=== PATIENT | female | born 1960 | race Caucasian/White ===

== ENCOUNTER 2016-08-27 15:17 | Emergency (ER) | payer OTHER ==
[~2016-08-27] VITALS: Ht 170.2 cm; Wt 100.0 kg
[~2016-08-27 15:17] MED LIST: FAMO-18 PO; MAG355OR15 PO; NAPR-260 PO; ONDA4TAB8 PO
[2016-08-27 15:32] VITALS: Ht 170.2 cm; Wt 100.0 kg
[2016-08-27] MEDS ORDERED: AZIT250T94 PO (16:16)
[2016-08-27] MEDS ORDERED: FLUT9.9S NASAL (16:17)
[2016-08-27] MEDS ORDERED: UDROBDM PO (16:17)
[2016-08-27] MEDS ORDERED: NAPR-260 PO (16:19)
--- NOTE | 2016-08-27 16:24 | ERD ---
ER Documentation Chief Complaint Date/Time DATE: 08/27/16 TIME: 16:21 Chief Complaint PRODUCTIVE COUGH W/YELLOWISH,THICK SPUTUMX 2 WKS;BACK HURTS WHEN PT COUGHS HPI This a 55-year-old female who presents to the emergency department today complaining of cough for the past 2 weeks. States that she has coughing up green phlegm. States her back hurts when she coughs. States that 2 weeks prior to this she had the flu. Denies any fevers at this time. States she has tried lybo-dlw-aczairm cough medication with no improvement in symptoms. Denies any fevers or chills, nausea vomiting or diarrhea ROS All systems reviewed and are negative except as per history of present illness. Medications Home Meds Active Scripts Naproxen* (Naprosyn*) 500 Mg Tablet, 500 MG PO BID Y for PAIN AND/OR INFLAMMATION, #30 TAB Prov:BRET GUIDRY PA-C 08/27/16 Fluticasone Propionate (Flonase Allergy Relief) 9.9 Ml Palmer.susp, 2 SPRAY NASAL DAILY, #1 BOTTLE TO EACH NOSTRIL Prov:BRET GUIDRY PA-C 08/27/16 Guaifenesin-Dextromethorphan* (Robitussin* DM) 100MG/10MG/5ML Syrup, 10 ML PO Q6H Y for COUGH for 5 Days, ML Prov:BRET GUIDRY PA-C 08/27/16 Azithromycin* (Zithromax*) 250 Mg Tablet, 250 MG PO .GustavoPACK DIRECTED, #6 TAB TAKE 500 MG (2 TABS) THE FIRST DAY THEN 250 MG (1 TAB) DAYS 2-5 Prov:BRET GUIDRY PA-C 08/27/16 Ondansetron Hcl* (Zofran*) 4 Mg Tablet, 4 MG PO Q8H Y for NAUSEA AND/OR VOMITING , #30 TAB Prov:LEONIDAS CELIS MD 11/19/15 Naproxen* (Naprosyn*) 500 Mg Tablet, 500 MG PO BID Y for PAIN AND/OR INFLAMMATION, #30 TAB Prov:LEONIDAS CELIS MD 11/19/15 Famotidine* (Pepcid*) 20 Mg Tablet, 20 MG PO BID for 4 Days, #30 TAB Prov:LEONIDAS CELIS MD 11/19/15 Mag Hydrox/Al Hydrox/Simeth (Maalox Ms Liquid) 360 Ml Oral.susp, 2 TSP PO TID for PAIN, #24 OZ Prov:LEONIDAS CELIS MD 11/19/15 Allergies Allergies: Uncoded Allergies: PENICILLIN (Allergy, Unknown, 11/19/15) PMhx/Soc History of Surgery: No Anesthesia Reaction: No Hx Neurological Disorder: No Hx Respiratory Disorders: No Hx Cardiac Disorders: Yes (htn) Hx Psychiatric Problems: No Hx Miscellaneous Medical Probl: No Hx Alcohol Use: No Hx Substance Use: No Hx Tobacco Use: No Physical Exam Vitals Vital Signs Date Time Temp Pulse Resp B/P Pulse Ox O2 Delivery O2 Flow Rate FiO2 08/27/16 15:32 97.8 80 19 151/80 95 Physical Exam Const: No acute distress Head: Atraumatic Eyes: Normal Conjunctiva ENT: ears TMs normal. Nose no drainage. Throat no erythema no exudate Neck: Full range of motion..~ No meningismus. Resp: Clear to auscultation bilaterally no absent breath sounds. No wheezing. Cardio: Regular rate and rhythm, no murmurs Abd: Soft, non tender, non distended. Normal bowel sounds Skin: No petechiae or rashes Neur: Awake and alert Psych: Normal Mood and Affect Procedures/MDM This 55-year-old female who presents the emergency department today complaining of cough for the past 2 weeks and back pain with coughing. Patient [facility]. She is afebrile and otherwise well-appearing. Her oxygen saturation 95%. She is not tachycardic. He is talkative and in no acute distress I do not feel the patient requires a chest x-ray at this time. Low suspicion for PE, abscess, pneumothorax, pleural effusion. I did give the patient a prescription for azithromycin that would cover her for pneumonia but symptoms at this time appear most consistent with bronchitis versus viral URI. I have low suspicion for strep pharyngitis, peritonsillar abscess, retropharyngeal abscess, otitis media, sinusitis, abscess, meningitis, sepsis, or other acute infectious bacterial process. Patient was given a prescription for azithromycin, Flonase, Robitussin, Naprosyn At this time the patient is stable for discharge and outpatient management. They should follow up with their PCP in the next 1-2. They may return to the emergency department sooner if symptoms persist or worsen. Patient understood and agreed with the plan. Departure Diagnosis: Primary Impression: Cough Condition: Fair Patient Instructions: What Is Bronchitis?, Cough, Chronic, Uncertain Cause, ( Adult) Referrals: COMM[facility]ITY CLINICS YOU HAVE RECEIVED A MEDICAL SCREENING EXAM AND THE RESULTS INDICATE THAT YOU DO NOT HAVE A CONDITION THAT REQUIRES URGENT TREATMENT IN THE EMERGENCY DEPARTMENT. FURTHER EVALUATION AND TREATMENT OF YOUR CONDITION CAN WAIT UNTIL YOU ARE SEEN IN YOUR DOCTORS OFFICE WITHIN THE NEXT 1-2 DAYS. IT IS YOUR RESPONSIBILITY TO MAKE AN APPOINTMENT FOR FOLOW-UP CARE. IF YOU HAVE A PRIMARY DOCTOR --you should call your primary doctor and schedule an appointment IF YOU DO NOT HAVE A PRIMARY DOCTOR YOU CAN CALL OUR PHYSICIAN REFERRAL HOTLINE AT IF YOU CAN NOT AFFORD TO SEE A PHYSICIAN YOU CAN CHOSE FROM THE FOLLOWING [facility] [address] [facility] [place] [facility] [address] [facility] [facility] [address] [facility]. [facility] [address] [address] [facility] [address] [facility]. [facility]. [address] Additional Instructions: Call your primary care doctor TOMORROW for an appointment during the next 1-2 days.See the doctor sooner or return here if your condition worsens before your appointment time. Take antibiotics as prescribed Take Robitussin for cough Take Flonase for nasal congestion Take Naprosyn for pain BRET GUIDRY PA-C Aug 27, 2016 16:24
== END 2016-08-27 16:20 | disposition home or self-care (01) ==
LOC: E/R 15:17
DX: R05 Cough (principal); I10 Essential (primary) hypertension
CPT/HCPCS: 99283

== ENCOUNTER 2017-07-25 06:46 | Inpatient (IN) | END 2017-07-30 18:55 | disposition home health service (06) | DRG 470 ==

== ENCOUNTER 2018-06-22 09:54 | Emergency (ER) | payer OTHER ==
[~2018-06-22] VITALS: Wt 94.2 kg
[~2018-06-22 09:54] MED LIST changes: +APIX5TAB PO; -FAMO-18 PO; +HYDR-4011 PO; +LOSA100T15 PO; -MAG355OR15 PO; -NAPR-260 PO; -ONDA4TAB8 PO
[2018-06-22 09:57] VITALS: BP 173/79; PULSE 98; RESP 16
[2018-06-22] MEDS ORDERED: ACETAMINOPHEN 325 MG TAB PO ONE (10:30)
--- NOTE | 2018-06-22 11:54 | ERD ---
ER Documentation Chief Complaint Chief Complaint RIGHT EAR PAIN X2 DAYS HPI 57-year-old female presents with right ear pain for last 2 days. She also has sore throat, cough and congestion. She points to the bilateral anterior neck is area of pain as well. ROS All systems reviewed and are negative except as per history of present illness. Medications Home Meds Active Scripts Hydrocodone/Acetaminophen ([place] 5-325 Tablet) 1 Each Tablet, 1 EACH PO Q4 for PAIN, #30 TAB Prov:JENNIFER VILLARREALA 07/30/17 Apixaban* (Eliquis*) 5 Mg Tablet, 2.5 MG PO BID for 14 Days, TAB Prov:JENNIFER VILLARREALA 07/30/17 Reported Medications Losartan Potassium* (Losartan Potassium*) 100 Mg Tablet, 100 MG PO DAILY, TAB 07/24/17 Allergies Allergies: Coded Allergies: Penicillins (Verified Allergy, Severe, 07/25/17) PMhx/Soc History of Surgery: Yes (C SECTION,LT EAR TYMPANOPLSTY,LIPOMA REMOVAL) Anesthesia Reaction: No Hx Neurological Disorder: No Hx Respiratory Disorders: No Hx Cardiac Disorders: Yes (HTN,HLD) Hx Psychiatric Problems: Yes (ANXIETY/DEPRESSION) Hx Miscellaneous Medical Probl: No Hx Alcohol Use: Yes (SOCIAL) Hx Substance Use: No Hx Tobacco Use: No Smoking Status: Unknown if ever smoked FmHx Family History: No diabetes, No coronary disease, No other Physical Exam Vitals Vital Signs Date Temp Pulse Resp B/P (MAP) Pulse Ox O2 O2 Flow FiO2 Time Delivery Rate 06/22/18 97.5 98 16 173/79 100 09:57 (110) Physical Exam Const: No acute distress Head: Atraumatic Eyes: Normal Conjunctiva ENT: Normal External Ears, Nose and Mouth. TMs normal. No significant lymphadenitis. Oropharynx grossly normal. no thyroid swelling or appreciable masses. Neck: Full range of motion. No meningismus. Resp: Clear to auscultation bilaterally Cardio: Regular rate and rhythm, no murmurs Abd: Soft, non tender, non distended. Normal bowel sounds Skin: No petechiae or rashes Back: No midline or flank tenderness Ext: No cyanosis, or edema Neur: Awake and alert Psych: Normal Mood and Affect Results 24 hrs Current Medications Medications Dose Sig/Hailey Start Time Status Last (Trade) Ordered Route PRN Stop Time Admin Dose Reason Admin 650 mg ONCE ONCE 06/22/18 DC Acetaminophen PO 10:30 (Tylenol 06/22/18 10:31 Tab) Procedures/MDM Tylenol was ordered for pain. EKG was ordered given neck pain of uncertain etiology with essentially normal exam. Patient was noted to have eloped prior to exam. Good susan effort was performed to locate the patient's no avail. Patient was marked as eloped subsequently. Patient was [id number] and ambulatory at time of last evaluation. Disposition-eloped Departure Diagnosis: Primary Impression: Right ear pain Condition: Stable JUMA GARCIA MD Jun 22, 2018 11:54
== END 2018-06-23 11:00 | disposition left against medical advice (07) ==
LOC: FTE 09:54
DX: H92.01 Otalgia, right ear (principal); I10 Essential (primary) hypertension
CPT/HCPCS: 93005; Z7502; Z7610

== ENCOUNTER 2018-08-19 09:57 | Inpatient (IN) | payer OTHER ==
[~2018-08-19] VITALS: Ht 170.2 cm; Wt 94.7 kg
[~2018-08-19 09:57] MED LIST changes: -LOSA100T15 PO
[2018-08-19 13:26] VITALS: PULSE 88
[2018-08-19 14:00] VITALS: BP 150/96; PULSE 88; RESP 18; BMI 37.1
[2018-08-19 15:07] VITALS: BP 146/72; PULSE 77; RESP 16
[2018-08-19 16:16] VITALS: PULSE 79
[2018-08-19] MEDS ORDERED: ONDANSETRON 4 MG INJ IV PRN (16:30)
[2018-08-19] MEDS ORDERED: DOCUSATE SODIUM 100 MG CAP PO PRN (16:30)
[2018-08-19] MEDS ORDERED: NACL 0.9% 3 ML SYG IV SCH (16:30)
[2018-08-19] MEDS ORDERED: NITROGLYCERIN (SL) 0.4 MG TAB SL PRN (16:30)
[2018-08-19] MEDS ORDERED: ALBUTEROL/IPRATROPIUM (NEB) 3 ML AMP HHN PRN (16:30)
[2018-08-19] MEDS ORDERED: LORAZEPAM 2 MG INJ IV PRN (16:30)
[2018-08-19] MEDS ORDERED: ACETAMINOPHEN 325 MG TAB PO PRN (16:30)
[2018-08-19] MEDS ORDERED: MAGNESIUM HYDROXIDE 30ML CUP PO PRN (16:30)
[2018-08-19] MEDS ORDERED: hydrALAzine 20 MG INJ IV PRN (16:30)
--- NOTE | 2018-08-19 17:18 | HP ---
DATE OF ADMISSION: 08/19/2018 CHIEF COMPLAINT: This is a 57-year-old female transferred from outside hospital due to altered menta l status and headache. HISTORY OF PRESENT ILLNESS: A 57-year-old female with past medical history of hypertension, high cho lesterol, right knee osteoarthritis status post surgical replacement in the past, anxiety and depress ion, and alcohol abuse who presented to outside hospital with altered mental status and headache. Ap parently, the patient was having some altered mental status and possible abnormal behavior and had ta michele Crum the night previously. Apparently, she was also confused and was found walking in the kapoor of her house naked. Denied any upper or lower GI bleeding. No nausea, vomiting. No fevers or chil ls. No diarrhea or constipation. No dizziness. When she went to the outside hospital, she had some labs performed that did not show any significant abnormality and the head CT did not show any acute findings. PAST MEDICAL HISTORY: As stated above. ALLERGIES 1. IBUPROFEN. 2. TORADOL. 3. PENICILLIN. 4. PLASTIC TAPE. PAST SURGICAL HISTORY: She has had a knee surgery, right knee replacement in the past. She had a le ft leg surgery in the past and ear surgery in the past. SOCIAL HISTORY: Former alcohol user, apparently has been sober for the last 6 months. Denies any IV drug abuse or smoking history. FAMILY HISTORY: Noncontributory. PHYSICAL EXAMINATION: VITAL SIGNS: T-max 98.1, pulse 97, respirations 20, blood pressure 128/82, satting at 98% room air. GENERAL: The patient is lying in bed, slightly less confused than before, no acute distress. HEENT: Pupils equal, round, reactive to light. Extraocular muscles intact. NECK: Supple, no thyromegaly. LUNGS: Clear to auscultation bilaterally. CARDIOVASCULAR: S1, S2 heard. No murmurs, rubs or gallops. ABDOMEN: Soft, nontender, nondistended. Normal bowel sounds. No rebound or guarding. MUSCULOSKELETAL: No lower extremity edema bilaterally. NEUROLOGIC: No focal deficits. LABORATORIES: Again, CBC is normal. The comprehensive metabolic panel was normal. Troponin is nega tive x1. The UA did not show any acute findings. We mentioned the head CT results, specifically, no evidence of any acute intracranial hemorrhages, infarcts or intracranial pathology. There is some m ild diffuse volume loss. ASSESSMENT AND PLAN: A 57-year-old female coming in with altered mental status and headache symptoms . 1. Headache and altered mental status. Again, head CT does not show any acute findings. The patien t may have taken polysubstance use. Since she does have history of anxiety, depression and prior use of alcohol abuse in the past, alcohol is also a consideration. We will admit the patient. Check TS H, A1c and lipid panel. Get PT consults. Put on low-dose IV fluids. Check ethanol level, drug scre en levels. Ativan p.r.n. pain and fevers and for any signs of any agitation or withdrawal. If there are any findings on the ethanol level as far as elevation, will consider adding banana bag and Libri um and get 7th grade social studies teacher consult at that time. 2. History of hypertension. Blood pressure stable. Continue current medications. 3. High cholesterol. Follow up lipid panel. Continue statin. 4. History of osteoarthritis. Again, get PT consult. Continue pain control medications. She does have a history of knee replacement in the past. 5. History of anxiety and depression. Again, Ativan p.r.n. Dictated By: MARLENE RODARTE/CORBIN Conf#: [id number] DID#: [id number] CC: LEONIDAS WHITTINGTON MD;*End*
[2018-08-19] MEDS ORDERED: ATOR20TA38 PO (17:57)
[2018-08-19] MEDS ORDERED: HYDR25TA6 PO (17:57)
[2018-08-19] MEDS ORDERED: PROP10TA6 PO (17:57)
[2018-08-19] MEDS ORDERED: LOSA100T15 PO (17:57)
[2018-08-19] MEDS ORDERED: ZOLP10TA PO (17:57)
[2018-08-19] MEDS ORDERED: LIT300 PO (17:57)
[2018-08-19] MEDS ORDERED: DULO60CA6 PO (17:57)
[2018-08-19] MEDS: SOD CHLORIDE 0.45% 1,000 ML IV SCH (18:11)
[2018-08-19 19:40] VITALS: BP 161/86; PULSE 81; RESP 18
[2018-08-19 20:00] VITALS: PULSE 81
[2018-08-19] MEDS ORDERED: GUAIFENESIN 20 MG/ML 5ML CUP PO ONE (20:10)
[2018-08-19] MEDS: morphine 2 MG INJ IV PRN (21:21)
[2018-08-20] VITALS (17 sets, daily range): BP systolic 128–200; BP diastolic 66–94; PULSE 73–115; RESP 16–18
[2018-08-20] MEDS: SOD CHLORIDE 0.45% 1,000 ML IV SCH ×3 (05:47→16:00)
[2018-08-20] MEDS: HYDROCODONE/APAP (5/325) TAB PO PRN (12:34)
[2018-08-20] MEDS ORDERED: LORAZEPAM 2 MG INJ IV PRN (14:30)
[2018-08-20] MEDS ORDERED: CHLORDIAZEPOXIDE 25 MG CAP PO SCH (14:30)
--- NOTE | 2018-08-20 14:46 | PN ---
DATE: 08/20/2018 SUBJECTIVE: The patient is somewhat tearful today, but more awake and alert but disheveled, asking me to speak to psychiatrist; otherwise, tolerating diet, no acute events overnight. Blood pressures have been in the high normal range, given hydralazine p.r.n. OBJECTIVE: VITAL SIGNS: Stable except her systolic blood pressure is 140 to 182 systolic over 80 to 88 diastolic. GENERAL: The patient is sitting up in bed, answering questions but somewhat tremulous at times and occasionally tearful. HEENT: Pupils are equal, round, reactive to light. Extraocular muscles are intact. NECK: Supple. No thyromegaly. LUNGS: Clear to auscultation bilaterally. CARDIOVASCULAR: S1, S2 heard. No rubs or gallops. ABDOMEN: Soft, nontender, nondistended. Normal bowel sounds. There is no rebound or guarding. MUSCULOSKELETAL: No lower extremity edema bilaterally. NEUROLOGIC: No focal deficits. LABORATORY DATA: Sodium 139, potassium 4.1, chloride 100, CO2 of 35, BUN 12, creatinine 1.02, glucose 56. Mag and phosphatase are normal. Glucose is 104. Cholesterol panel was normal. A1c is 5.2. CBC is normal. Blood alcohol level appears to be slightly elevated. Drug screen is negative. UA shows negative nitrites, negative leukocyte esterase. ASSESSMENT AND PLAN: 57-year-old female transferred from outside hospital with altered mental status and headache, likely secondary to noncompliance with her depression medicines and possible alcohol abuse. 1. Headache and altered mental status- Symptoms have improved. The patient does appear disheveled, appears to be withdrawing from either drugs or alcohol. Again, blood alcohol level appears to be elevated. - Continue low-dose IV fluids, Start banana bag, low-dose Librium p.o., Ativan p.r.n. - Follow up recommendations, PT consult. - We will also get psychiatry consult given patient's history of anxiety and depression and also current situation where she is disheveled and possibly relapsed on alcohol. 2. Hypertension. Again, blood pressures are in the high normal range. - We will restart the patient's home blood pressure medicines. - Continue hydralazine p.r.n. 3. High cholesterol. Lipid panel appears stable. Continue statin. 4. History of osteoarthritis and history of right knee replacement a year ago. No present issues. - Continue to monitor for now. - Pain control as needed. 5. History of anxiety and depression. See #1. - Again, Kobe haskins, Psychiatry consult. Dictated By: MARLENE CANA[place] Conf#: [id number] DID#: [id number] CC: DEEPAK FLANAGAN TODDLER LEAD TEACHER;*EndCC* MTDD
[2018-08-20] MEDS: HYDROCHLOROTHIAZIDE 25 MG TAB PO SCH (15:59)
[2018-08-20] MEDS: LOSARTAN 50 MG TAB PO SCH (15:59)
[2018-08-20] MEDS: CHLORDIAZEPOXIDE 25 MG CAP PO SCH ×2 (15:59→20:41)
[2018-08-20] MEDS ORDERED: hydrALAzine 20 MG INJ IV PRN (16:30)
[2018-08-20] MEDS: LITHIUM CARBONATE 300 MG CAP PO SCH (20:41)
[2018-08-20] MEDS: ATORVASTATIN 20 MG TAB PO SCH (20:41)
[2018-08-20] MEDS: PROPRANOLOL 10 MG TAB PO SCH (20:43)
[2018-08-20] MEDS: morphine 2 MG INJ IV PRN (21:01)
[2018-08-20] MEDS: MULTIVITAMINS 10 ML, THIAMINE 100 MG, FOLIC ACID 1 MG in SOD CHLORIDE 0.9% 1,000 ML IVPB SCH (21:09)
[2018-08-21] VITALS (11 sets, daily range): BP systolic 131–155; BP diastolic 61–86; PULSE 73–92; RESP 16–18
[2018-08-21] MEDS: HYDROCODONE/APAP (5/325) TAB PO PRN ×2 (00:16→09:02)
[2018-08-21] MEDS: SOD CHLORIDE 0.45% 1,000 ML IV SCH ×3 (03:50→20:11)
[2018-08-21] MEDS: morphine 2 MG INJ IV PRN ×3 (05:59→20:16)
[2018-08-21] MEDS: HYDROCHLOROTHIAZIDE 25 MG TAB PO SCH (08:50)
[2018-08-21] MEDS: CHLORDIAZEPOXIDE 25 MG CAP PO SCH ×3 (08:51→20:07)
[2018-08-21] MEDS: PROPRANOLOL 10 MG TAB PO SCH ×3 (08:51→20:11)
[2018-08-21] MEDS: MULTIVITAMINS 10 ML, THIAMINE 100 MG, FOLIC ACID 1 MG in SOD CHLORIDE 0.9% 1,000 ML IVPB SCH (08:52)
[2018-08-21] MEDS: LOSARTAN 50 MG TAB PO SCH (08:52)
[2018-08-21] MEDS ORDERED: HYDROCHLOROTHIAZIDE 25 MG TAB PO SCH (09:00)
[2018-08-21] MEDS ORDERED: LOSARTAN 50 MG TAB PO SCH (09:00)
--- NOTE | 2018-08-21 10:23 | PSY ---
Date/Time of Note Date/Time of Note DATE: 08/21/18 TIME: 10:18 Psychiatric Subjective Eval Consent Pt consented to telemedicine: No Subjective Evaluation Patient location: inpatient Hospitalization: other Family History Patient is a 57-year-old female with past medical history of hypertension, high cholesterol, right knee osteoarthritis who is currently here for ALOC. Medical history Problems Medical Problems: (1) Cough Status: Acute (2) Epigastric pain Status: Acute (3) GERD (gastroesophageal reflux disease) Status: Acute (4) Right ear pain Status: Acute (5) Vomiting and diarrhea Status: Acute Allergies: Coded Allergies: Penicillins (Verified Allergy, Severe, ITCHING, 08/19/18) ketorolac (Verified Allergy, Intermediate, 08/19/18) ibuprofen (Verified Allergy, Mild, 08/19/18) Uncoded Allergies: PLASTIC TAPE (Allergy, Unknown, 08/19/18) Substance Abuse Substance abuse history: Yes Prior substance abuse treatmen: Yes Social History Marital status: other DPA/Conservatorship: No Psychiatric Objective Eval Review of Systems: Review of Systems: Not Applicable Physical Examination: Sleep: Insomnia Energy: Adequate Mental Status Examination: Appearance: Poor Hygiene Eye Contact: Fair Behavior: Cooperative Speech: Clear AFFECT: Flat Mood: Depressed, Anxious Though Process: Linear Thought Content: Normal Orientation: x4 Insight: Mild Judgement: Mild Attention Span: Distractible Laboratory Results Laboratory Tests Test 08/19/18 17:15 08/19/18 17:16 08/20/18 06:16 08/20/18 08:42 Urine Color ANI Urine Clarity CLEAR Urine pH 7.0 Urine Specific 1.004 Sasser Urine Ketones NEGATIVE mg/dL Urine Nitrite NEGATIVE mg/dL Urine Bilirubin NEGATIVE mg/dL Urine NEGATIVE mg/dL Urobilinogen Urine Leukocyte NEGATIVE Elidia/ul Esterase Urine Microscopic 0 /HPF RBC Urine Microscopic 1 /HPF WBC Urine Hemoglobin 1+ mg/dL Urine Glucose NEGATIVE mg/dL Urine Total NEGATIVE mg/dl Protein Urine Opiates Negative Screen Urine Negative Barbiturates Urine Negative Amphetamines Screen Urine Negative Benzodiazepines Screen Urine Cocaine Negative Screen Urine Negative Cannabinoids Free Thyroxine 1.10 ng/dl Ethyl Alcohol < 10.0 mg/dl Level White Blood Count 5.7 10^3/ul Red Blood Count 4.00 10^6/ul Hemoglobin 12.7 g/dl Hematocrit 36.5 % Mean Corpuscular 91.3 fl Volume Mean Corpuscular 31.8 pg Hemoglobin Mean Corpuscular 34.8 g/dl Hemoglobin Concen t Red Cell 11.9 % Distribution Width Platelet Count 190 10^3/UL Mean Platelet 8.6 fl Volume Immature 0.200 % Granulocytes % Neutrophils % 59.0 % Lymphocytes % 29.1 % Monocytes % 6.3 % Eosinophils % 4.9 % Basophils % 0.5 % Nucleated Red 0.0 /100WBC Blood Cells % Immature 0.010 10^3/ul Granulocytes # Neutrophils # 3.3 10^3/ul Lymphocytes # 1.7 10^3/ul Monocytes # 0.4 10^3/ul Eosinophils # 0.3 10^3/ul Basophils # 0.0 10^3/ul Nucleated Red 0.0 10^3/ul Blood Cells # Sodium Level 139 mmol/L Potassium Level 4.1 mmol/L Chloride Level 100 mmol/L Carbon Dioxide 35 mmol/L Level Anion Gap 4 Blood Urea 12 mg/dl Nitrogen Creatinine 1.02 mg/dl Est Glomerular 56 mL/min Filtrat Rate mL/min Glucose Level 104 mg/dl Hemoglobin A1c 5.2 % Calcium Level 9.0 mg/dl Phosphorus Level 4.5 mg/dl Magnesium Level 2.1 mg/dl Triglycerides 122 mg/dl Level Cholesterol Level 154 mg/dl LDL Cholesterol, 85 mg/dl Calculated HDL Cholesterol 45 mg/dl Cholesterol/HDL 3.4 RATIO Ratio Thyroid 1.140 MIU/L Stimulating Hormone (TSH) Bedside Glucose 103 mg/dL Test 08/21/18 06:10 White Blood Count 5.2 10^3/ul Red Blood Count 4.15 10^6/ul Hemoglobin 13.1 g/dl Hematocrit 38.1 % Mean Corpuscular 91.8 fl Volume Mean Corpuscular 31.6 pg Hemoglobin Mean Corpuscular 34.4 g/dl Hemoglobin Concen t Red Cell 11.8 % Distribution Width Platelet Count 205 10^3/UL Mean Platelet 8.6 fl Volume Immature 0.200 % Granulocytes % Neutrophils % 51.9 % Lymphocytes % 37.2 % Monocytes % 6.6 % Eosinophils % 3.7 % Basophils % 0.4 % Nucleated Red 0.0 /100WBC Blood Cells % Immature 0.010 10^3/ul Granulocytes # Neutrophils # 2.7 10^3/ul Lymphocytes # 1.9 10^3/ul Monocytes # 0.3 10^3/ul Eosinophils # 0.2 10^3/ul Basophils # 0.0 10^3/ul Nucleated Red 0.0 10^3/ul Blood Cells # Sodium Level 140 mmol/L Potassium Level 3.7 mmol/L Chloride Level 103 mmol/L Carbon Dioxide 31 mmol/L Level Anion Gap 6 Blood Urea 12 mg/dl Nitrogen Creatinine 0.90 mg/dl Est Glomerular > 60 mL/min Filtrat Rate mL/min Glucose Level 111 mg/dl Calcium Level 9.1 mg/dl Assessment and Plan Assessment/Diagnosis Diagnosis Major Depressive Disorder Severe Recurrent Recommendation/Plan Medication Management Cymbalta 60mg daily and [place] 300mg QHS Discharge Disposition: Other Legal Status: Voluntary (DOES NOT MEET CRITERIA) PANCHITO SOTELO NP Aug 21, 2018 10:23
[2018-08-21] MEDS: DULOXETINE 30 MG CAP DR PO SCH (10:50)
--- NOTE | 2018-08-21 12:14 | PN ---
Date/Time of Note Date/Time of Note DATE: 08/21/18 TIME: 12:10 Assessment/Plan VTE Prophylaxis Risk score (from Nsg)>0 risk: 3 SCD applied (from Nsg): Yes Pharmacological prophylaxis: other Lines/Catheters IV Catheter Type (from Nrsg): Peripheral IV Urinary Cath still in place: No Assessment/Plan Hospital Course SUBJECTIVE: Seen by psychiatry team yesterday, complaining of some right leg pain. Less emotionally labile, otherwise no acute events overnight OBJECTIVE: VS - see below PE: GENERAL: Lying in bed, answering questions HEENT: Pupils are equal, round, reactive to light. Extraocular muscles are intact. NECK: Supple. No thyromegaly. LUNGS: Clear to auscultation bilaterally. CARDIOVASCULAR: S1, S2 heard. No rubs or gallops. ABDOMEN: Soft, nontender, nondistended. Normal bowel sounds. There is no rebound or guarding. MUSCULOSKELETAL: No lower extremity edema bilaterally. NEUROLOGIC: No focal deficits. ASSESSMENT AND PLAN: 57-year-old female transferred from outside hospital with altered mental status and headache, likely secondary to noncompliance with her depression medicines and possible alcohol abuse. 1. Headache and altered mental status-likely secondary to combination of depression and alcohol intoxication, symptoms have improved. The patient does appear disheveled, appears to be withdrawing from either drugs or alcohol. Again, blood alcohol level appears to be elevated. - Continue low-dose IV fluids, banana bag, low-dose Librium p.o., Ativan p.r.n. - Follow up recommendations, PT consult. - Appreciate psychiatry consult given patient's history of anxiety and depression -continue lithium and Cymbalta as recommended by them 2. Hypertension-presently stable -Continue home blood pressure medicines. - Continue hydralazine p.r.n. 3. High cholesterol. Lipid panel appears stable. - Continue statin. 4. History of osteoarthritis and history of right knee replacement a year ago. No present issues. - Continue to monitor for now. - Pain control as needed. 5. History of anxiety and depression. See #1. - Again, Ativan p.r.n., Psychiatry consult rec's Result Diagram: 08/21/18 0610 08/21/18 0610 Results 24hrs Laboratory Tests Test 08/21/18 06:10 White Blood Count 5.2 Red Blood Count 4.15 L Hemoglobin 13.1 Hematocrit 38.1 Mean Corpuscular Volume 91.8 Mean Corpuscular Hemoglobin 31.6 Mean Corpuscular Hemoglobin Concent 34.4 Red Cell Distribution Width 11.8 Platelet Count 205 Mean Platelet Volume 8.6 Immature Granulocytes % 0.200 Neutrophils % 51.9 Lymphocytes % 37.2 Monocytes % 6.6 Eosinophils % 3.7 Basophils % 0.4 Nucleated Red Blood Cells % 0.0 Immature Granulocytes # 0.010 Neutrophils # 2.7 Lymphocytes # 1.9 Monocytes # 0.3 Eosinophils # 0.2 Basophils # 0.0 Nucleated Red Blood Cells # 0.0 Sodium Level 140 Potassium Level 3.7 Chloride Level 103 Carbon Dioxide Level 31 Anion Gap 6 Blood Urea Nitrogen 12 Creatinine 0.90 Est Glomerular Filtrat Rate mL/min > 60 Glucose Level 111 Calcium Level 9.1 Exam/Review of Systems Exam Vitals Vital Signs Date Temp Pulse Resp B/P (MAP) Pulse Ox O2 O2 Flow FiO2 Time Delivery Rate 08/21/18 98.7 82 18 131/61 98 Room Air 11:16 (84) Intake and Output 08/20/18 08/20/18 08/21/18 1515:00 23:00 07:00 IntakeIntake Total 175 ml 1575 ml 1511.2 ml BalanceBalance 175 ml 1575 ml 1511.2 ml Results Results 24hrs Laboratory Tests Test 08/21/18 06:10 White Blood Count 5.2 Red Blood Count 4.15 L Hemoglobin 13.1 Hematocrit 38.1 Mean Corpuscular Volume 91.8 Mean Corpuscular Hemoglobin 31.6 Mean Corpuscular Hemoglobin Concent 34.4 Red Cell Distribution Width 11.8 Platelet Count 205 Mean Platelet Volume 8.6 Immature Granulocytes % 0.200 Neutrophils % 51.9 Lymphocytes % 37.2 Monocytes % 6.6 Eosinophils % 3.7 Basophils % 0.4 Nucleated Red Blood Cells % 0.0 Immature Granulocytes # 0.010 Neutrophils # 2.7 Lymphocytes # 1.9 Monocytes # 0.3 Eosinophils # 0.2 Basophils # 0.0 Nucleated Red Blood Cells # 0.0 Sodium Level 140 Potassium Level 3.7 Chloride Level 103 Carbon Dioxide Level 31 Anion Gap 6 Blood Urea Nitrogen 12 Creatinine 0.90 Est Glomerular Filtrat Rate mL/min > 60 Glucose Level 111 Calcium Level 9.1 Medications Medication Current Medications IV Flush (NS 3 ml) 3 ml PER PROTOCOL IV ; Start 08/19/18 at 16:30 Ondansetron HCl (Zofran Inj) 4 mg Q6H PRN IV NAUSEA/VOMITING; Start 08/19/18 at 16:30 Acetaminophen (Tylenol Tab) 650 mg Q6H PRN PO .PAIN 1-3 OR TEMP Last administered on 08/19/18 18:12; Admin Dose 650 MG; Start 08/19/18 at 16:30 Acetaminophen/ Hydrocodone Bitart ([place] (5/325)) 1 tab Q6H PRN PO .MOD PAIN 4- 6 Last administered on 08/21/18 09:02; Admin Dose 1 TAB; Start 08/19/18 at 16:30 Morphine Sulfate (morphine) 2 mg Q4H PRN IV .SEVERE PAIN 7-10 Last administered on 08/21/18 05:59; Admin Dose 2 MG; Start 08/19/18 at 16:30 Docusate Sodium (Colace) 100 mg Q12H PRN PO .CONSTIPATION; Start 08/19/18 at 16:30 Magnesium Hydroxide (Milk Of Mag) 30 ml DAILY PRN PO .CONSTIPATION; Start 08/19/18 at 16:30 Albuterol/ Ipratropium (Duoneb) 3 ml Q4H RESP THERAPY PRN HHN SHORTNESS OF BREATH; Start 08/19/18 at 16:30 Nitroglycerin (Nitroglycerin (Sl Tab) 0.4 Mg) 1 tab Q5M PRN SL ANGINA; Start 08/19/18 at 16:30 Atorvastatin Calcium (Lipitor) 20 mg QHS PO Last administered on 08/20/18 20 :41; Admin Dose 20 MG; Start 08/20/18 at 21:00 [place] Carbonate ([place] Carbonate) 300 mg QHS PO Last administered on 08/20/18 20:41; Admin Dose 300 MG; Start 08/20/18 at 21:00 Propranolol HCl (Inderal) 10 mg TID PO Last administered on 08/21/18 08:51; Admin Dose 10 MG; Start 08/20/18 at 21:00 Hydrochlorothiazide (Hydrochlorothiazide) 25 mg DAILY PO Last administered on 08/21/18 08:50; Admin Dose 25 MG; Start 08/20/18 at 14:30 Lorazepam (Ativan) 1 mg Q1H PRN IV CONTROL WITHDRAWAL SYMPTOMS; Start 08/20/18 at 14:30 Losartan Potassium (Cozaar) 100 mg DAILY PO Last administered on 08/21/18 08:52; Admin Dose 100 MG; Start 08/20/18 at 14:30 Hydralazine HCl (Apresoline) 10 mg Q4H PRN IV ELEVATED BLOOD PRESSURE Last administered on 08/20/18 21:03; Admin Dose 10 MG; Start 08/20/18 at 16:30 Multivitamins 10 ml/Thiamine HCl 100 mg/Folic Acid 1 mg/Sodium Chloride 1,011.2 ml @ 125 mls/ hr DAILY@09 IVPB Last administered on 08/21/18 08:52; Admin Dose 125 MLS/HR; Start 08/20/18 at 14:30 Chlordiazepoxide (Librium) 25 mg TID PO Last administered on 08/21/18 08:51; Admin Dose 25 MG; Start 08/20/18 at 14:30 Sodium Chloride 1,000 ml @ 75 mls/hr [id number] IV Last administered on 08/20/18 16:00; Admin Dose 75 MLS/HR; Start 08/20/18 at 14:30 Duloxetine HCl (Cymbalta) 60 mg DAILY PO Last administered on 08/21/18 10:50; Admin Dose 60 MG; Start 08/21/18 at 10:30 MARLENE LUCERO Aug 21, 2018 12:14
[2018-08-21] MEDS ORDERED: GUAIFENESIN 20 MG/ML 5ML CUP PO PRN (14:30)
[2018-08-21] MEDS: ATORVASTATIN 20 MG TAB PO SCH (20:07)
[2018-08-21] MEDS: LITHIUM CARBONATE 300 MG CAP PO SCH (20:07)
[2018-08-22 03:49] VITALS: BP 141/73; PULSE 77; RESP 18
[2018-08-22 07:01] VITALS: BP 129/91; PULSE 95; RESP 20
[2018-08-22 07:08] VITALS: Ht 170.2 cm; Wt 94.7 kg
[2018-08-22] MEDS: HYDROCODONE/APAP (5/325) TAB PO PRN (07:59)
[2018-08-22] MEDS: CHLORDIAZEPOXIDE 25 MG CAP PO SCH ×2 (08:10→12:18)
[2018-08-22] MEDS: DULOXETINE 30 MG CAP DR PO SCH (08:10)
[2018-08-22] MEDS: PROPRANOLOL 10 MG TAB PO SCH ×2 (08:11→12:18)
[2018-08-22] MEDS: HYDROCHLOROTHIAZIDE 25 MG TAB PO SCH (08:12)
[2018-08-22] MEDS: LOSARTAN 50 MG TAB PO SCH (08:12)
[2018-08-22] MEDS: MULTIVITAMINS 10 ML, THIAMINE 100 MG, FOLIC ACID 1 MG in SOD CHLORIDE 0.9% 1,000 ML IVPB SCH (10:24)
--- NOTE | 2018-08-22 11:01 | PDOCDIS ---
Discharge Instructions CONDITION [id number] Patient Condition: [id number] Stable HOME CARE INSTRUCTIONS: [id number] Diet Instructions: [id number] Low Fat /Cholesterol ACTIVITY: [id number] Activity Restrictions: [id number] Slowly Increase Activity Rest between Activity Avoid heavy lifting FOLLOW UP/APPOINTMENTS Follow-up Plan Please take your medication as prescribed, see your doctor in the clinic in the next 1 week. MARLENE LUCERO Aug 22, 2018 11:01
[2018-08-22] MEDS ORDERED: LOSA100T15 PO (11:05)
[2018-08-22] MEDS ORDERED: HYDR-4011 PO (11:05)
[2018-08-22] MEDS ORDERED: PROP10TA6 PO (11:05)
[2018-08-22] MEDS ORDERED: GUAI-637 PO (11:05)
[2018-08-22] MEDS ORDERED: ATOR20TA38 PO (11:05)
[2018-08-22] MEDS ORDERED: HYDR25TA6 PO (11:05)
[2018-08-22] MEDS ORDERED: LIT300 PO (11:05)
[2018-08-22] MEDS ORDERED: DULO60CA6 PO (11:05)
--- NOTE | 2018-08-22 11:11 | DS ---
Date/Time of Note Date/Time of Note DATE: 08/22/18 TIME: 11:08 Discharge Summary Admission/Discharge Info Admit Date/Time Aug 21, 2018 at 08:50 Discharge Date/Time Discharge Diagnosis 1. Headache and altered mental status-likely secondary to combination of dep ression and alcohol intoxication, symptoms have improved. 2. Hypertension-presently stable 3. High cholesterol. Lipid panel appears stable. 4. History of osteoarthritis and history of right knee replacement a year ago. No present issues. 5. History of anxiety and depression. See #1. Patient Condition: Stable Hx of Present Illness 57-year-old female with past medical history of hypertension, high cholesterol, right knee osteoarthritis status post surgical replacement in the past, anxiety and depression, and alcohol abuse who presented to outside hospital with altered mental status and headache. Apparently, the patient was having some altered mental status and possible abnormal behavior and had taken Ambien the night previously. Apparently, she was also confused and was found walking in the [place] of her house naked. Denied any upper or lower GI bleeding. No nausea, vomiting. No fevers or chills. No diarrhea or constipation. No dizziness. When she went to the outside hospital, she had some labs performed that did not show any significant abnormality and the head CT did not show any acute findings. Hospital Course Patient was initially admitted to telemetry floor. Patient had altered mental status likely secondary to combination of alcohol use and possible mild polypharmacy as an outpatient. Patient also had a headache symptoms and somewhat uncontrolled blood pressure. She was restarted on her home blood pressure medicines. Blood pressure improved she was started on banana bag and benzodiazepine medication to help control her lethargy and signs of likely alcohol withdrawal. Patient's clinical symptoms improved. She was able to ambulate, tolerated p.o. diet. She was seen by the psychiatry team given her history of anxiety and depression. She was restarted on her Cymbalta and lithium medications. Patient tolerated these well. Because the patient is clinically improved today she will be discharged home today in improved c ondition. She is strongly encouraged to follow-up with her outpatient psychiatrist which she sees fairly regularly. See below for full list of discharge medications. Home Meds Active Scripts Guaifenesin (Guaifenesin) 100 Mg/5 Ml Liquid, 200 MG PO Q4H PRN for COUGH, #1 BOTTLE Prov:MARLENE LUCERO S. 08/22/18 Propranolol Hcl* (Propranolol Hcl*) 10 Mg Tablet, 10 MG PO TID, #90 TAB 2 Refills Prov:MARLENE LUCERO S. 08/22/18 Hydrochlorothiazide* (Hydrochlorothiazide*) 25 Mg Tab, 25 MG PO DAILY, #30 TAB 2 Refills Prov:MARLENE LUCERO S. 08/22/18 Duloxetine Hcl* (Cymbalta*) 60 Mg Capsule.dr, 60 MG PO BID, #60 CAP 3 Refills Prov:MARLENE LUCERO S. 08/22/18 [place] Carbonate* ([place]*) 300 Mg Cap, 300 MG PO QHS, #15 CAP Prov:MARLENE LUCERO S. 08/22/18 Losartan Potassium* (Losartan Potassium*) 100 Mg Tablet, 100 MG PO DAILY, #30 TAB 2 Refills Prov:MARLENE LUCERO S. 08/22/18 Atorvastatin Calcium* (Atorvastatin Calcium*) 20 Mg Tablet, 20 MG PO QHS, #30 TAB 2 Refills Prov:MARLENE LUCERO S. 08/22/18 Hydrocodone/Acetaminophen ([place] 5-325 Tablet) 1 Each Tablet, 1 EACH PO Q4 for PAIN, #10 TAB Prov:MARLENE LUCERO S. 08/22/18 Discontinued Reported Medications Zolpidem Tartrate* (Ambien*) 10 Mg Tablet, 10 MG PO QHS, TAB 08/19/18 Losartan Potassium* (Losartan Potassium*) 100 Mg Tablet, 100 MG PO DAILY, TAB 07/24/17 Discontinued Scripts Apixaban* (Eliquis*) 5 Mg Tablet, 2.5 MG PO BID for 14 Days, TAB Prov:CHANG VILLARREAL 07/30/17 Follow-up Plan Please take your medication as prescribed, see your doctor in the clinic in the next 1 week. Primary Care Provider Not On Staff Doctor Time spent on discharge: > 30 minutes Pending Labs Laboratory Tests Test 08/21/18 16:06 08/22/18 05:43 [place] Level < 0.4 mmol/L (0.6-1.3) White Blood Count 6.5 10^3/ul (4.8-10.8) Red Blood Count 4.08 10^6/ul (4.20-5.40) Hemoglobin 12.7 g/dl (12.0-16.0) Hematocrit 37.1 % (37.0-47.0) Mean Corpuscular Volume 90.9 fl (82.0-101.0) Mean Corpuscular Hemoglobin 31.1 pg (29.0-33.0) Mean Corpuscular 34.2 g/dl (32.0-37.0) Hemoglobin Concent Red Cell Distribution Width 11.8 % (11.5-14.5) Platelet Count 225 10^3/UL (140-415) Mean Platelet Volume 8.9 fl (7.4-10.4) Immature Granulocytes % 0.200 % (0.001-0.429) Neutrophils % 54.2 % (39.0-77.0) Lymphocytes % 34.9 % (15.0-51.0) Monocytes % 5.9 % (0.0-11.0) Eosinophils % 4.2 % (0.0-7.0) Basophils % 0.6 % (0.0-2.0) Nucleated Red Blood Cells % 0.0 /100WBC (0.0-0.0) Immature Granulocytes # 0.010 10^3/ul (0.0-0.031) Neutrophils # 3.5 10^3/ul (1.6-7.5) Lymphocytes # 2.3 10^3/ul (0.8-2.9) Monocytes # 0.4 10^3/ul (0.3-0.9) Eosinophils # 0.3 10^3/ul (0.0-0.5) Basophils # 0.0 10^3/ul (0.0-0.1) Nucleated Red Blood Cells # 0.0 10^3/ul (0.0-0.0) Sodium Level 141 mmol/L (135-144) Potassium Level 4.0 mmol/L (3.5-5.1) Chloride Level 105 mmol/L (97-110) Carbon Dioxide Level 30 mmol/L (21-31) Anion Gap 6 (5-13) Blood Urea Nitrogen 13 mg/dl (7-20) Creatinine 1.03 mg/dl (0.44-1.00) Est Glomerular Filtrat 55 mL/min (>60) Rate mL/min Glucose Level 99 mg/dl (70-220) Calcium Level 9.0 mg/dl (8.4-10.2) MARLENE LUCERO Aug 22, 2018 11:11
[2018-08-22] MEDS: morphine 2 MG INJ IV PRN (12:18)
[2018-08-23] MEDS ORDERED: MULTIVITAMINS 10 ML, FOLIC ACID 1 MG in SOD CHLORIDE 0.9% 1,000 ML IVPB SCH (09:00)
== END 2018-08-22 17:45 | disposition home or self-care (01) | DRG 885 ==
LOC: INTOOBSV 12:40 → TEL 12:40 → OBSVTOIN 08-21 08:50 → 5EC 08-22 06:51
PROVIDERS: ADMIT Hospitalist; ATTEND Hospitalist
DX: F33.2 Major depressive disorder, recurrent severe without psychotic features (principal); F10.239 Alcohol dependence with withdrawal, unspecified; I10 Essential (primary) hypertension; E78.00 Pure hypercholesterolemia, unspecified; F41.9 Anxiety disorder, unspecified; F10.229 Alcohol dependence with intoxication, unspecified; Z88.0 Allergy status to penicillin; Z96.651 Presence of right artificial knee joint
CPT/HCPCS: 80048; 80061; 80178; 80307; 81001; 82962; 83036; 83735; 84100; 84439; 84443; 85025; 87081; 87086; 90686; 97162; 99217; G0378; J0360; J2060; J2270; J3411; J7030